=== PATIENT | male | born 1995 | race Two or more races ===

== ENCOUNTER 2019-04-02 08:33 | Day surgery (SDC) | payer BC ==
[2019-04-01 12:16] LABS: Basophils # (auto) 0 uL; Basophils % (auto) 0.5 % (0.0-2.0); Eosinophils # (auto) 0.1 uL; Eosinophils % (auto) 0.7 % (0.0-7.0); Hematocrit 46.9 % (41.0-53.0); Hemoglobin 16.3 g/dL (13.5-17.5); Lymphocytes # (auto) 1.4 uL; Lymphocytes % (auto) 17.4 % (10.0-50.0); Mean Corpuscular Hemoglobin 33.1 pg (28.0-32.0); Mean Corpuscular Hgb Conc. 34.7 g/dL (32.0-36.0); Mean Corpuscular Volume 95.4 fL (80.0-100.0); Monocytes # (auto) 0.6 uL; Monocytes % (auto) 6.9 % (0.0-12.0); Neutrophils # (auto) 6.2 uL; Neutrophils % (auto) 74.5 % (37.0-80.0); Nucleated Red Blood Cells % 0.2 %; Platelet Count (auto) 209 10^3/uL (140-450); Red Blood Cells 4.92 10^6/uL (4.5-5.90); Red Cell Distribution Width 13.1 % (11.8-14.3); White Blood Cell 8.3 10^3/uL (4.4-10.8)
[2019-04-01 12:29] LABS: INR 0.93 (0.9-1.15); Partial Thromboplastin Time 26.3 sec (23.64-32.05)
[2019-04-01 13:20] LABS: Albumin 3.6 g/dL (3.4-5.0); Calcium 8.8 mg/dL (8.5-10.1); Potassium 3.8 mmol/L (3.5-5.1)
[2019-04-01 13:24] LABS: BUN/Creatinine Ratio 16.7
[2019-04-01 13:25] LABS: Bilirubin, Total 0.5 mg/dL (0.2-1.0); Total Protein 7.6 g/dL (6.4-8.2)
[~2019-04-02] VITALS: Ht 180.3 cm; Wt 136.1 kg
[2019-04-02] MEDS ORDERED: fentaNYL CITRATE 100 MCG/2 ML VL ONE (09:04)
[2019-04-02] MEDS ORDERED: MIDAZOLAM HCL 1MG/1ML-2 ML VIAL ONE (09:05)
[2019-04-02] MEDS ORDERED: ONDANSETRON HCL 4 MG/2 ML VIAL ONE (09:05)
[2019-04-02] MEDS ORDERED: PROPOFOL 10 MG/ML 20 ML IV ONE (09:05)
[2019-04-02] MEDS ORDERED: SODIUM CHLORIDE LOCK 10 ML ONE (09:05)
[2019-04-02] MEDS ORDERED: LIDOCAINE HCL 2% TOP JELLY 5ML TOP ONE (09:08)
[2019-04-02] MEDS ORDERED: ceFAZolin 1GM/50ML 50 ML IV ONE (09:14)
[2019-04-02] MEDS ORDERED: ROPIVACAINE 0.5% (5MG/ML) 20ML AMPULE IJ ONE (09:21)
[2019-04-02] MEDS ORDERED: METOCLOPRAMIDE HCL 5MG/ml INJ 2ml VIAL IV ONE (09:30)
[2019-04-02] MEDS ORDERED: HYDROmorphone HCL 2 MG/ML VL IV PRN (09:30)
[2019-04-02] MEDS ORDERED: KETOROLAC TROMETH 30 MG/ML 1ML VIAL IV ONE (09:30)
[2019-04-02] MEDS ORDERED: ROCURONIUM 10MG/ML 10ML VIAL IV ONE (09:36)
[2019-04-02 10:27] VITALS: BP 157/93
== END 2019-04-02 10:40 | disposition home or self-care (01) ==
LOC: SUR 08:33
PROVIDERS: ATTEND Podiatrist Foot & Ankle Surgery
DX: M72.2 Plantar fascial fibromatosis (principal); Z98.890 Other specified postprocedural states; E66.01 Morbid (severe) obesity due to excess calories; Z68.41 Body mass index [BMI] 40.0-44.9, adult
CPT/HCPCS: 28899; 36415; 80053; 85025; 85610; 85730; 88304; J0690; J2250; J2405; J2704; J2795; J3010; Q4139